=== PATIENT | male | born 1970 ===

== ENCOUNTER 2020-09-17 22:54 | Emergency (ER) | payer MEDICAID ==
[~2020-09-17] VITALS: Ht 167.6 cm; Wt 63.6 kg
[2020-09-17 23:04] VITALS: BP 96/60
== END 2020-09-18 07:29 | disposition left against medical advice (07) ==
LOC: ER 22:55
DX: R51.9 Headache, unspecified (principal); Z53.21 Procedure and treatment not carried out due to patient leaving prior to being seen by health care provider